=== PATIENT | male | born 1990 | race Two or more races ===

== ENCOUNTER 2017-12-02 00:47 | Emergency (ER) | payer MEDICAID ==
[~2017-12-02] VITALS: Ht 182.9 cm; Wt 77.1 kg
[2017-12-02] MEDS ORDERED: NKM (00:48)
[2017-12-02 00:50] VITALS: BP 151/89
--- NOTE | 2017-12-02 00:59 | Emergency Room Report ---
History of Present Illness General Chief Complaint: General Complaint Source: Patient Present Illness HPI This is a 26-year-old male who has a history of alcohol abuse. He usually drink a fifth of liquor a day. Last drink was around noon. He woke up feeling shaky and jittery and body pain. No vomiting. Never had this problem before. Denies any fever chills denies any nausea vomiting. Denies any other complaint. Allergies: Coded Allergies: SULFA (SULFONAMIDE ANTIBIOTICS) (Verified Allergy, Unknown, 12/02/17) Patient History Past Medical History: see triage record, old chart reviewed Past Surgical History: none Pertinent Family History: none Social History: Denies: smoking Immunizations: other Reviewed Nursing Documentation: PMH: Agreed; PSxH: Agreed Nursing Documentation-PMH Past Medical History: No Stated History Review of Systems Eye: Denies: eye pain, blurred vision ENT: Denies: ear pain, nose congestion, throat swelling Respiratory: Denies: cough, shortness of breath Cardiovascular: Denies: chest pain, palpitations Gastrointestinal: Denies: abdominal pain, diarrhea, nausea, vomiting Musculoskeletal: Denies: back pain, joint pain Skin: Denies: rash Neurological: Denies: headache, numbness Endocrine: Denies: increased thirst, increased urine Hematologic/Lymphatic: Denies: easy bruising All Other Systems: negative except mentioned in HPI Physical Exam Vital Signs Date Time Temp Pulse Resp B/P (MAP) Pulse Ox O2 Delivery O2 Flow Rate FiO2 12/02/17 00:48 98.4 114 18 149/91 99 Room Air 98.4 vitals with tachycardia Sp02 EP Interpretation: reviewed, normal General Appearance: well appearing, no apparent distress, alert Head: normocephalic, atraumatic Eyes: bilateral eye PERRL, bilateral eye EOMI ENT: hearing grossly normal, normal pharynx Neck: full range of motion, supple, no meningismus Respiratory: chest non-tender, lungs clear, normal breath sounds Cardiovascular #1: regular rate, rhythm, no murmur Gastrointestinal: normal bowel sounds, non tender, no mass, no organomegaly, no bruit, non-distended Musculoskeletal: back normal, gait/station normal, normal range of motion, other - mild tremulous Neurologic: alert, oriented x3 Psychiatric: mood/affect normal Skin: warm/dry Medical Decision Making Diagnostic Impression: Primary Impression: Alcohol withdrawal Qualified Codes: F10.230 - Alcohol dependence with withdrawal, uncomplicated Additional Impression: Alcoholism ER Course Patient presents with mild alcohol withdrawal. Better after Ativan and Librium. We'll discharge home. We'll refer to rehabilitation. No criteria for 5150. Last Vital Signs Date Time Temp Pulse Resp B/P (MAP) Pulse Ox O2 Delivery O2 Flow Rate FiO2 12/02/17 00:48 98.4 114 18 149/91 99 Room Air 98.4 Status: improved Disposition: HOME, SELF-CARE Condition: Stable Scripts Chlordiazepoxide (Chlordiazepoxide HCl) 25 Mg Capsule 25 MG ORAL THREE TIMES A DAY, #21 CAP 0 Refills Prov: ALEX DENG M.D. 12/02/17 Additional Instructions: Follow-up with your doctor in 7 days. Go to rehabilitation. Return if worse. ALEX DENG M.D. Dec 02, 2017 00:59
[2017-12-02] MEDS ORDERED: chlordiazePOXIDE 25mg Cap ORAL ONE (01:00)
[2017-12-02] MEDS ORDERED: LORazepam Inj 2mg/ml 1ml IM ONE ×2 (01:00)
[2017-12-02] MEDS ORDERED: LIBRIUM25 MG ORAL (01:01)
[2017-12-02 01:36] VITALS: BP 147/79
[2017-12-02 01:37] VITALS: BP 151/89
== END 2017-12-02 01:37 | disposition home or self-care (01) ==
LOC: EDBD 00:47 → EMR 00:58
DX: F10.230 Alcohol dependence with withdrawal, uncomplicated (principal); Z88.2 Allergy status to sulfonamides
CPT/HCPCS: 96372; 99283